=== PATIENT | male | born 1960 | race Caucasian/White ===

== ENCOUNTER 2016-08-31 06:26 | Day surgery (SDC) | payer OTHER ==
[2016-08-18 11:34] VITALS: BMI 28.3
[~2016-08-31] VITALS: Ht 182.9 cm; Wt 98.0 kg
[2016-08-31] VITALS (14 sets, daily range): BP systolic 92–128; BP diastolic 56–81; PULSE 54–76; RESP 15–20; Ht 182.9 cm; Wt 98.0 kg
[~2016-08-31 06:26] MED LIST: ACET325T40 PO; CEFAZOLIN 2 GM/50 ML (PMX) 50 ML IVPB SCH; CLIN-72 PO; LEVO500T72 PO; NAPR-688 PO; OMEP20CA16 PO; ORA20G7 BUCCAL; SOD CHLORIDE 0.9% 1,000 ML IV SCH; TRAM50TA2 PO
[2016-08-31] MEDS ORDERED: ATOR20TA38 PO (07:23)
[2016-08-31] MEDS ORDERED: OMEG1CAP35 PO (07:24)
[2016-08-31] MEDS ORDERED: ASPI-664 PO (07:24)
[2016-08-31] MEDS ORDERED: CHOL500010 PO (07:26)
[2016-08-31] MEDS ORDERED: NEOSTIGMINE 3 MG/3 ML SYRINGE ONE (08:26)
[2016-08-31] MEDS ORDERED: MIDAZOLAM 1 MG/ML 2 ML INJ ONE (08:26)
[2016-08-31] MEDS ORDERED: PROPOFOL 20 ML ONE ×2 (08:26→08:57)
[2016-08-31] MEDS ORDERED: ROCURONIUM 50 MG INJ ONE (08:26)
[2016-08-31] MEDS ORDERED: GLYCOPYRROLATE 0.4 MG INJ ONE (08:26)
[2016-08-31] MEDS ORDERED: ROPIVACAINE 0.5 % 30 ML VIAL ONE (08:27)
[2016-08-31] MEDS ORDERED: METOCLOPRAMIDE 10 MG INJ ONE (08:27)
[2016-08-31] MEDS ORDERED: KETOROLAC 30 MG INJ ONE (08:29)
--- NOTE | 2016-08-31 08:33 | HPN ---
Date/Time of Note Date/Time of Note DATE: 08/31/16 TIME: 08:32 Interval H&P Admission Note Pt. seen H&P reviewed: No system changes TRACEY CARTAGENA MD Aug 31, 2016 08:33
[2016-08-31] MEDS ORDERED: BUPIVACAINE 0.25%/EPI (SDV) 30 ML INJ INJ ONE (08:37)
[2016-08-31] MEDS ORDERED: BUPIVACAINE 0.25%/EPI (SDV) 30 ML INJ ONE (09:05)
[2016-08-31] MEDS ORDERED: DIPHENHYDRAMINE 50 MG INJ IV PRN (09:30)
[2016-08-31] MEDS ORDERED: ONDANSETRON 4 MG INJ IV PRN ×2 (09:30→10:30)
[2016-08-31] MEDS ORDERED: ALBUTEROL 0.083% (NEB) 2.5 MG/3 ML AMP HHN ONE (09:30)
[2016-08-31] MEDS ORDERED: HYDROmorphONE (0.2 MG/ML) 10ML SYG IV PRN ×3 (09:30)
[2016-08-31] MEDS ORDERED: METOCLOPRAMIDE 10 MG INJ IV PRN (09:30)
[2016-08-31] MEDS ORDERED: OXYCODONE/ACETAMINOPHEN (5/325) TAB PO PRN ×4 (09:30→10:30)
[2016-08-31] MEDS ORDERED: MEPERIDINE 25 MG INJ IV PRN (09:30)
[2016-08-31] MEDS ORDERED: morphine 10 MG INJ IV PRN (10:30)
--- NOTE | 2016-08-31 10:40 | OPR ---
Date/Time of Note Date/Time of Note DATE: 08/31/16 TIME: 10:31 Operative Report Procedure Date: Aug 31, 2016 Preoperative Diagnosis Right inguinal hernia without obstruction or gangrene Postoperative Diagnosis 1. Right inguinal hernia without obstruction or gangrene 2. Peritoneal adhesions Operation Performed 1. Laparoscopic right inguinal hernia repair with mesh (modifier 22) 2. Laparoscopic lysis of adhesions 3. Right ilioinguinal nerve block Surgeon: TRACEY CARTAGENA MD Anesthesia: general Anesthesiologist: TAIWO HILLIARD MD Estimated Blood Loss: minimal Specimens None Complications: None Pt Condition Post Procedure: stable Disposition: PACU Indications The patient is a 56-year-old male who presented to the office complaining of a painful right groin bulge. He was diagnosed on clinical exam as having a right inguinal hernia. The patient was scheduled for laparoscopic right inguinal hernia repair with mesh; possible open to prevent sequelae of hernia disease which include, but are not limited to: Incarceration and strangulation. All risks and benefits of the procedure including but not limited to: Wound infection, excessive bleeding, postoperative seroma/hematoma formation, nerve injury which may be temporary versus permanent, injury to the reproductive organs including the vas deferens and the testicle which may lead to testicular atrophy, injury to intra-abdominal organs necessitating subsequent operation, hernia recurrence, chronic pain, etc. were all explained to the patient full detail. The patient fully understood and wished to proceed with the procedure. Informed consent was therefore obtained. Operative\Procedure Findings Large right indirect inguinal hernia containing omentum and a large lipoma of the cord. Dense scarring to the peritoneum from prior open appendectomy. There was no left inguinal hernia. The procedure required time and technical skill in excess of that which is usual and customary of a procedure of this type. Procedure Description The patient was brought to the operating room and placed supine on the operating table. Bilateral sequential compression devices were placed on both lower extremities and a dose of prophylactic broad-spectrum perioperative intravenous antibiotics was given. After the induction of smooth general endotracheal anesthesia the patient's abdomen, groins and scrotum were prepped and draped in standard surgical fashion. A supraumbilical incision was made using a 15 blade scalpel and a Veress needle was used to access the intra- abdominal cavity atraumatically. Pneumoperitoneum was obtained and the Veress needle was exchanged for a 12 mm trocar through which a. 5 mm 30 laparoscope was placed. Diagnostic laparoscopy showed a large right-sided indirect hernia. This contained omentum. There was no left inguinal hernia identified. There were adhesions of the omentum to the right lower quadrant near the right anterior superior iliac spine from prior open appendectomy. There was no other intra-abdominal pathology. Two further working ports were placed. They were both 5 mm ports placed 2 cm above the umbilicus in the right and left midclavicular lines. All port sites were anesthetized with 0.25% Marcaine with epinephrine prior to incision. The patient was then placed in reverse Trendelenburg position. Laparoscopic lysis of adhesions was done taking down the adhesions in the right lower quadrant near the right groin using the laparoscopic ronan. Starting from the anterior superior iliac spine on the right side the peritoneum was mobilized off of the underlying transversalis fascia to the level of the right median umbilical ligament. There was dense scarring in the right lateral side of the peritoneum to the underlying transversalis likely from the patient's prior surgery. Extensive amount of time about that which is usual and customary for procedure this type was spent to safely dissect the peritoneum off of the transversalis muscle in this area. Dissection was continued medially and Scott's ligament and the pubis were identified. The hernia sac and omentum were then reduced back into the intra- abdominal cavity and dissected off of the spermatic cord. A large lipoma of the cord was identified and reduced back into the intra-abdominal cavity. The spermatic cord and its structures were identified and preserved throughout the entirety of the procedure. There was dense scarring of the hernia sac which made dissection tedious. An extensive amount of time which was in excess of that which is usual and customary of the procedure of this type was spent to safely dissect the hernia sac. Once the hernia sac was completely reduced back into the abdominal cavity and dissected off of the spermatic cord a 10 x 15 cm piece of Covidien Symbotex mesh was used to repair the hernia defect. It covered all possible openings of the myopectineal orifice. The mesh was soaked in antibiotic containing irrigation prior to inserting it into the field. The mesh was secured in place using a secure strap tacker. With the repair complete hemostasis was inspected for and noted to be total. Pneumoperitoneum was then decreased to 10 mmHg and the peritoneum was reapproximated over the mesh using a secure strap tacker. The lipoma was tacked to the peritoneum to further prevent recurrence. Once this was complete pneumoperitoneum was released and all trocars were withdrawn under direct vision. The fascia of the umbilical port site was reapproximated using an Endo Close device and 0 Vicryl suture. Subcutaneous tissues were irrigated with more irrigation. Further local anesthesia was applied around the skin of the incision sites. At this point attention was turned to the right ilioinguinal nerve block. 10 mL of 0.25% Marcaine with epinephrine were injected in a radial fashion proximally 2 cm medial and inferior to the right anterior superior iliac spine. Once this was completed the skin of the incision sites was reapproximated using 4-0 Monocryl sutures in subcuticular fashion. Incisions were cleaned and Dermabond was applied. The patient was awoken from anesthesia and transported to the recovery room in stable condition. Both testicles were palpated at the end of the case and noted to be in their anatomical position. All counts were correct at the end of the case 2. Due to the dense scarring of both the peritoneum and hernia sac as well as adhesions from prior surgery and amount of technical skill in time in excess of that which is usual and customary the procedure of this type was required to safely perform the procedure. Therefore, modifier 22 should be applied. TRACEY CARTAGENA MD Aug 31, 2016 10:40
== END 2016-08-31 12:53 | disposition home or self-care (01) ==
LOC: SDS 06:26
PROVIDERS: ATTEND Surgery
DX: K40.90 Unilateral inguinal hernia, without obstruction or gangrene, not specified as recurrent (principal); E78.5 Hyperlipidemia, unspecified
CPT/HCPCS: 49650; 82962; J1885; J2175; J2250; J2405; J2710; J2765; J2795; Z7512; Z7610